=== PATIENT | female | born 1985 | race Caucasian/White ===

== ENCOUNTER 2019-01-05 18:37 | Emergency (ER) | payer MEDICAID ==
[~2019-01-05] VITALS: Ht 162.6 cm; Wt 63.0 kg
[2019-01-05 18:53] VITALS: BP 119/77; Ht 162.6 cm; Wt 63.0 kg
== END 2019-01-05 20:32 | disposition home or self-care (01) ==
LOC: ED 18:37
DX: B02.9 Zoster without complications (principal)

== ENCOUNTER 2019-01-08 09:49 | Emergency (ER) | payer MEDICAID ==
[~2019-01-08] VITALS: Ht 165.1 cm; Wt 63.5 kg
[2019-01-08 09:52] VITALS: BP 117/83; Ht 165.1 cm; Wt 63.5 kg
== END 2019-01-08 10:30 | disposition home or self-care (01) ==
LOC: ED 09:49
DX: B02.9 Zoster without complications (principal)
CPT/HCPCS: J1885

== ENCOUNTER 2019-01-21 04:29 | Emergency (ER) | payer MEDICAID ==
[~2019-01-21] VITALS: Ht 162.6 cm; Wt 62.6 kg
[2019-01-21 04:33] VITALS: Ht 162.6 cm; Wt 62.6 kg
[2019-01-21 06:30] VITALS: BP 123/84
== END 2019-01-21 06:30 | disposition home or self-care (01) ==
LOC: ED 04:29
DX: B02.9 Zoster without complications (principal); Z98.890 Other specified postprocedural states; F41.9 Anxiety disorder, unspecified
CPT/HCPCS: J2765; Q0162

== ENCOUNTER 2019-03-23 11:09 | Emergency (ER) | payer OTHER ==
[~2019-03-23] VITALS: Ht 154.9 cm; Wt 64.4 kg
[2019-03-23 11:17] VITALS: BP 115/77; Ht 154.9 cm; Wt 64.4 kg
[2019-03-23 11:57] LABS: BASOPHIL % 0.5 % (0-2); PLATELET COUNT 276 x10^3mcL (130-400); RED CELL DISTRIBUTION WIDTH 12.1 % (11.5-14.5)
== END 2019-03-23 13:36 | disposition home or self-care (01) ==
LOC: ED 11:09
PROVIDERS: Emergency Medicine
DX: N83.209 Unspecified ovarian cyst, unspecified side (principal)
CPT/HCPCS: 36415; J3010